=== PATIENT | female | born 1935 | race Caucasian/White ===

== ENCOUNTER 2021-12-17 14:01 | Emergency (ER) | payer OTHER, SELFPAY ==
[2021-12-17 14:19] VITALS: BP 123/58; PULSE 77; RESP 16; TEMP 36.9; O2SAT 98
--- NOTE | 2021-12-17 14:36 | ED.GENADULT ---
HPI - General Adult General Chief complaint: Extremity Injury, Upper Stated complaint: Left Arm Injury Time Seen by Provider: 12/17/21 14:34 Source: patient Mode of arrival: ambulatory Limitations: no limitations History of Present Illness HPI narrative: 86-year-old female presented for complaints of left arm skin tear after injury 2 days ago. She cut her arm on a scooter. Since then she has been applying Neosporin and a dressing. The wound is currently scabbed, no active bleeding, swelling or drainage. She takes Coumadin daily. Requesting information on how to treat the wound. Related Data Home Medications Medication Instructions Recorded Confirmed carvedilol 25 mg tablet 25 mg PO BID 12/17/21 12/17/21 furosemide 80 mg tablet 80 mg PO BID 12/17/21 12/17/21 levothyroxine 137 mcg tablet 137 mcg PO DAILY 12/17/21 12/17/21 potassium chloride 10 mEq 10 meq PO DAILY 12/17/21 12/17/21 capsule,extended release simvastatin 20 mg tablet 20 mg PO DAILY 12/17/21 12/17/21 spironolactone 50 mg tablet 50 mg PO DAILY 12/17/21 12/17/21 warfarin 3 mg tablet 3 mg PO DAILY 12/17/21 12/17/21 Allergies Allergy/AdvReac Type Severity Reaction Status Date / Time adhesive tape Allergy Rash Verified 12/17/21 14:25 Review of Systems Review of Systems: CONSTITUTIONAL: Denies body aches, fever, chills, or sweats. EYES: Denies visual changes, redness, or discharge. ENT: Denies rhinorrhea, congestion, sore throat, or otalgia. CARDIOVASCULAR: Denies chest pain, palpitations, or edema. RESPIRATORY: Denies cough or dyspnea. SKIN: Reports forearm wound MUSCULOSKELETAL: Denies back pain, joint pain, or myalgia. NEUROLOGIC: Denies headache, numbness, tingling, or weakness. PMFSH Comments At time of signature, I have reviewed and agree with nursing past medical, surgical, social and family history unless otherwise noted. Please see nursing chart for further information. There is no relevant family history pertinent to the presenting complaint Exam Narrative: GENERAL: Well-appearing EYES: conjunctivae clear, and EOMI. ENT: Mucous membranes moist. CHEST: Clear to auscultation. HEART: Regular rate and rhythm. SKIN: Warm, dry. LFA skin tear approx 1cm with dried blood, no active drainage; surrounding ecchymosis approx 5cm diameter. No s/s infection. Tender with touch. NEURO: Alert and oriented x3. PSYCH: Normal mood and affect Course Course Emergency Course: Patient is aware of diagnosis, understands and agrees to treatment plan. Anticipatory guidance given. Patient agrees to follow-up as directed and is aware of reasons to seek care at the emergency department. Portions of this record may have been created with voice recognition software Level of Care: Express Care Visit Vital Signs Vital signs: Vital Signs Temperature 98.4 F 12/17/21 14:19 Pulse Rate 77 12/17/21 14:19 Respiratory Rate 16 12/17/21 14:19 Blood Pressure 123/58 L 12/17/21 14:19 Pulse Oximetry 98 12/17/21 14:19 Oxygen Delivery Room Air 12/17/21 14:19 Temperature 98.4 F 12/17/21 14:19 Pulse Rate 77 12/17/21 14:19 Respiratory Rate 16 12/17/21 14:19 Blood Pressure 123/58 L 12/17/21 14:19 Pulse Oximetry 98 12/17/21 14:19 Oxygen Delivery Room Air 12/17/21 14:19 Reviewed Medical Decision Making MDM Narrative Medical decision making narrative: Nonadhesive drsg applied to LFA with krystin holland RN. Advised wound care and signs/symptoms to go to the ER. Pt is appropriate for outpt treatment and f/u. Differential Diagnosis Differential Diagnosis: laceration, skin avulsion, abrasion, cellulitis Vital Signs Vital Signs: Vital Signs Temperature 98.4 F 12/17/21 14:19 Pulse Rate 77 12/17/21 14:19 Respiratory Rate 16 12/17/21 14:19 Blood Pressure 123/58 L 12/17/21 14:19 Pulse Oximetry 98 12/17/21 14:19 Oxygen Delivery Room Air 12/17/21 14:19 Temperature 98.4 F 12/17/21 14:19 Pulse Rate 77 12/17/
== END 2021-12-17 14:47 | disposition home or self-care (01) ==
PROVIDERS: Emergency Provider Nurse Practitioner Family; PCP Family Medicine
DX: S51.812A Laceration without foreign body of left forearm, initial encounter (principal); W45.8XXA Other foreign body or object entering through skin, initial encounter; E78.00 Pure hypercholesterolemia, unspecified; I10 Essential (primary) hypertension; E03.9 Hypothyroidism, unspecified
CPT/HCPCS: 99212; G0463